=== PATIENT | female | born 1970 | race Caucasian/White ===

== ENCOUNTER 2017-01-07 00:54 | Outpatient (CLI) | payer OTHER ==
--- NOTE | 2017-01-07 08:41 | Diagnostic Imaging Report ---
CT scan abdomen and pelvis without intravenous contrast HISTORY: Pain Total DLP equals 524 CTDI equals 11.0 Axial sections were obtained from the xiphoid process down to the pubic symphysis. The liver exhibits a homogeneous parenchyma. No focal lesions. The spleen appears normal. No abnormality seen in the region of the pancreas. No focal renal lesions. The exam of the pelvis demonstrates preservation of normal fat planes. There is a mildly distended stool-filled air-filled rectum. An approximate 2.0 cm left adnexal cyst with a small calcification probably related to the ovary noted. Trace of free fluid in the lower pelvis. Several diverticula scattered in the colon. Mildly prominent appendix (7 mm). Suggestion of a subcentimeter appendicolith. Preservation of normal periappendiceal fat. Significance should be correlated clinically. IMPRESSION: 1. Slightly prominent appendix with no definite secondary signs of inflammation. The significance should be correlated clinically. 2. 2.0 cm left adnexal cyst with a small calcification probably related to the ovary. If necessary, a follow-up ultrasound exam would provide further assessment. 3. Trace of free fluid in the lower pelvis. Findings may be on a physiologic basis. Again, clinical correlation correlation with the menstrual status recommended. 4. Diverticulosis
== END 2017-01-07 01:48 | disposition short-term general hospital (02) ==
LOC: RAD 00:54 → EEVIPCON 00:54 → RAD 01:48
PROVIDERS: ATTEND Emergency Medicine
DX: R10.31 Right lower quadrant pain (principal)